=== PATIENT | female | born 1975 | race Caucasian/White ===

== ENCOUNTER → 2016-07-13 | Outpatient (CLI) | payer OTHER ==
--- NOTE | ~2016-07-13 | PUL ---
PATIENT'S NAME: MANSI MAHER [facility] AGE: 40 Y [address] ROOM: [place] [address] LOCATION: [facility] ADMIT DATE: 07/13/2016 Pulmonary DISCHARGE DATE: FAMILY PHYSICIAN: Andrew Wilson MD ATTENDING PHYSICIAN: Adonis Gallagher NAME OF PROCEDURE: Home sleep test DATE OF PROCEDURE: 07/13/16 TECH: Vicky Edwards [facility] SUMMARY: Patient underwent home sleep testing using a type III device and was studied for 9 hours 7 minutes. In that time there were 16 hypopneas and 13 apneas for an apnea/hypopnea index normal at 3.2 events per hour. Oxygen saturations ranged from 84%-95% and were below 88% for fewer than 5 minutes. Heart rate ranged from 47-88 beats per minute. IMPRESSION: Normal home sleep test. PLAN: Patient will receive results from the ordering provider. ALONSO LUIS MD [facility]/ /[id number] dtt: 08/04/16 1017 , Alonso Luis dtd: 07/18/16 1304
== END | disposition disaster alternative care site (69) ==
LOC: GSLP 07-05 10:42
DX: G47.19 Other hypersomnia (principal); R53.82 Chronic fatigue, unspecified; R51 Headache
CPT/HCPCS: G0399